=== PATIENT | male | born 1950 | race Two or more races ===

== ENCOUNTER 2016-09-24 18:17 | Emergency (ER) | payer BC, MEDICARE ==
[~2016-09-24] VITALS: Ht 188 cm; Wt 102.1 kg
[2016-09-24 18:25] VITALS: BP 146/80
[2016-09-24 19:13] LABS: Albumin 4.2 g/dL (3.4-5.0); Anion Gap 9 (5-15); Calcium 9.1 mg/dL (8.5-10.1); Carbon Dioxide 28 mmol/L (21-32); Chloride 109 mmol/L (98-107); Glucose 102 mg/dL (74-106); Magnesium 2.3 mg/dL (1.6-2.6); Sodium 146 mmol/L (136-145)
[2016-09-24 19:16] LABS: Aspartate Aminotransferase 27 U/L (15-37); BUN/Creatinine Ratio 19.1; Bilirubin, Total 0.5 mg/dL (0.2-1.0); Blood Urea Nitrogen 22 mg/dL (7-18); GFR African American 82 mL/min; GFR Non-African American 68 mL/min; Total Protein 7.1 g/dL (6.4-8.2)
[2016-09-24 19:19] LABS: Alkaline Phosphatase 65 U/L (45-117); Basophils # (auto) 0.1 uL; Basophils % (auto) 0.7 % (0.0-2.0); CONDITION Y; Eosinophils # (auto) 0.3 uL; Eosinophils % (auto) 3.2 % (0.0-7.0); Hematocrit 44.7 % (41.0-53.0); Hemoglobin 15.2 g/dL (13.5-17.5); Lymphocytes # (auto) 1.7 uL; Lymphocytes % (auto) 22.2 % (10.0-50.0); Mean Corpuscular Hemoglobin 30.5 pg (28.0-32.0); Mean Corpuscular Hgb Conc. 33.9 g/dL (32.0-36.0); Mean Platelet Volume 9.5 fL (7.4-10.4); Monocytes # (auto) 0.7 uL; Monocytes % (auto) 8.9 % (0.0-12.0); Neutrophils # (auto) 5.1 uL; Platelet Count (auto) 249 10^3/uL (140-450); Red Cell Distribution Width 13.6 % (11.6-16.0); White Blood Cell 7.9 10^3/uL (4.4-10.8)
== END 2016-09-25 02:26 | disposition left against medical advice (07) ==
LOC: ER 18:24
DX: R07.9 Chest pain, unspecified (principal); Z53.21 Procedure and treatment not carried out due to patient leaving prior to being seen by health care provider
CPT/HCPCS: 36415; 80053; 83735; 84484; 85025; 93005

== ENCOUNTER 2017-06-03 05:19 | Inpatient (IN) | payer BC, MEDICARE ==
[~2017-06-03] VITALS: Ht 188 cm; Wt 106.4 kg
[2017-06-03 06:54] LABS: Basophils # (auto) 0.1 uL; Basophils % (auto) 0.8 % (0.0-2.0); Eosinophils # (auto) 0.1 uL; Eosinophils % (auto) 1.6 % (0.0-7.0); Hematocrit 45.7 % (41.0-53.0); Hemoglobin 15.9 g/dL (13.5-17.5); Lymphocytes # (auto) 0.8 uL; Lymphocytes % (auto) 10.1 % (10.0-50.0); Mean Corpuscular Hemoglobin 30.9 pg (28.0-32.0); Mean Corpuscular Hgb Conc. 34.7 g/dL (32.0-36.0); Mean Corpuscular Volume 89.2 fL (80.0-100.0); Monocytes # (auto) 0.6 uL; Monocytes % (auto) 7.2 % (0.0-12.0); Neutrophils # (auto) 6.2 uL; Neutrophils % (auto) 80.3 % (37.0-80.0); Nucleated Red Blood Cells % 0.5 %; Platelet Count (auto) 205 10^3/uL (140-450); Red Blood Cells 5.12 10^6/uL (4.5-5.90); Red Cell Distribution Width 13.1 % (11.8-14.3); White Blood Cell 7.7 10^3/uL (4.4-10.8)
[2017-06-03 07:12] LABS: BUN/Creatinine Ratio 17.3; Calcium 8.7 mg/dL (8.5-10.1); Potassium 3.8 mmol/L (3.5-5.1)
[2017-06-03 07:15] LABS: Bilirubin, Total 0.8 mg/dL (0.2-1.0)
[2017-06-03] MEDS ORDERED: SODIUM CHLORIDE 0.9% 1,000 ML IV ONE (07:46)
[2017-06-03] MEDS: LORazepam 2MG/ML-1ML VIAL IV ONE ×2 (08:00→08:21)
[2017-06-03 09:09] LABS: Magnesium 2.1 mg/dL (1.6-2.6)
[2017-06-03 09:12] LABS: INR 1.03 (0.9-1.15); Partial Thromboplastin Time 26.4 sec (22.64-33.71); Prothrombin Time 11.2 sec (9.37-12.3)
[2017-06-03 10:40] LABS: Urine Bacteria FEW /hpf (None Seen); Urine Blood Negative /uL (Negative); Urine Mucus FEW (None Seen); Urine Specific Gravity 1.017 (1.001-1.035); Urine WBC 65 /hpf (0 - 3)
[2017-06-03 10:44] LABS: Amphetamine Screen, Urine NEGATIVE (NEGATIVE); Barbiturate Scree,Urine NEGATIVE (NEGATIVE); Benzodiazephine Screen, Urine NEGATIVE (NEGATIVE); Cannabinoid Screen, Urine NEGATIVE (NEGATIVE); Cocaine Screen, Urine NEGATIVE (NEGATIVE); Opiate Scree,Urine NEGATIVE (NEGATIVE); Phencyclidine Screen, Urine NEGATIVE (NEGATIVE)
[2017-06-03] MEDS ORDERED: SODIUM CHLORIDE 0.9% 1,000 ML IV SCH (11:09)
[2017-06-03] MEDS ORDERED: TEMAZEPAM 15 MG CAP PO PRN (11:15)
[2017-06-03] MEDS ORDERED: PROMETHAZINE HCL 25 MG/ML 1ML IV PRN (11:15)
[2017-06-03] MEDS ORDERED: ACETAMINOPHEN 500 MG TAB PO PRN (11:15)
[2017-06-03] MEDS ORDERED: LACTULOSE 20Gm/30ML SOLN PO PRN (11:15)
[2017-06-03] MEDS ORDERED: LORazepam 0.5 MG TAB PO PRN (11:15)
[2017-06-03] MEDS ORDERED: MORPHINE SULFATE 4 MG/ML SYR/VIAL IV PRN ×2 (11:15)
[2017-06-03] MEDS ORDERED: LEVETIRACETAM 500 MG TAB PO ONE ×2 (11:15→12:30)
[2017-06-03] MEDS ORDERED: HYDROcodone-ACET 5/325MG TAB PO PRN (11:15)
[2017-06-03] MEDS ORDERED: LORazepam 2MG/ML-1ML VIAL IV PRN ×2 (11:15→17:30)
[2017-06-03] MEDS ORDERED: NITROGLYCERIN 0.4 MG SL TAB SL PRN (11:15)
[2017-06-03] MEDS ORDERED: ENOXAPARIN SOD 40 MG/0.4 ML SYRINGE SC SCH (11:20)
[2017-06-03] MEDS ORDERED: chlordiazePOXIDE HCL 25 MG CAP PO PRN (12:30)
[2017-06-03] MEDS ORDERED: cefTRIAXone 1GM/10ml IVPUSH 10 ML IV ONE (12:30)
[2017-06-03] MEDS ORDERED: THIAMINE HCL 100 MG/ML 2ML VIAL IV ONE (12:30)
[2017-06-03] MEDS ORDERED: ENOXAPARIN SOD 40 MG/0.4 ML SYRINGE SC ONE (13:15)
[2017-06-03] MEDS ORDERED: FAMOTIDINE 20 MG TAB PO ONE (13:15)
[2017-06-03] MEDS ORDERED: THIAMINE HCL 100 MG TAB PO ONE (13:15)
[2017-06-03] MEDS: SODIUM CHLORIDE 0.9% 1,000 ML IV SCH (14:52)
[2017-06-03] MEDS: chlordiazePOXIDE HCL 5 MG CAP PO SCH (18:00)
[2017-06-03 19:05] VITALS: BP 131/79
[2017-06-03 19:47] LABS: % Iron Saturation 18.4 % (20-55)
[2017-06-03 20:00] VITALS: BP 138/95
[2017-06-03 20:41] LABS: Ferritin 225.9 ng/mL (10-322)
[2017-06-03 20:42] LABS: Folate (Folic Acid) 12.09 ng/mL (5.38-24)
[2017-06-03 21:51] VITALS: BP 138/95
[2017-06-03] MEDS ORDERED: LEVETIRACETAM 500 MG TAB PO SCH (22:00)
[2017-06-03] MEDS: CARVEDILOL 3.125 MG TAB PO SCH (22:34)
[2017-06-03] MEDS: ENOXAPARIN SOD 40 MG/0.4 ML SYRINGE SC SCH (22:34)
[2017-06-03] MEDS: FAMOTIDINE 20 MG TAB PO SCH (22:34)
[2017-06-04] MEDS: chlordiazePOXIDE HCL 5 MG CAP PO SCH ×5 (00:28→22:58)
[2017-06-04] MEDS ORDERED: FENO1TAB42 PO (02:41)
[2017-06-04] MEDS ORDERED: VERA1TAB9 PO (02:41)
[2017-06-04] MEDS ORDERED: OLME20TA19 PO (02:41)
[2017-06-04] MEDS ORDERED: RANI150C11 PO ×2 (02:41)
[2017-06-04] MEDS: SODIUM CHLORIDE 0.9% 1,000 ML IV SCH (02:54)
[2017-06-04 05:01] VITALS: BP 107/64
[2017-06-04 07:17] LABS: Basophils # (auto) 0.1 uL; Basophils % (auto) 0.8 % (0.0-2.0); Eosinophils # (auto) 0.1 uL; Eosinophils % (auto) 1.1 % (0.0-7.0); Hematocrit 40.2 % (41.0-53.0); Hemoglobin 13.9 g/dL (13.5-17.5); Lymphocytes # (auto) 1.4 uL; Lymphocytes % (auto) 20.4 % (10.0-50.0); Mean Corpuscular Hemoglobin 31.1 pg (28.0-32.0); Mean Corpuscular Hgb Conc. 34.6 g/dL (32.0-36.0); Monocytes # (auto) 0.6 uL; Monocytes % (auto) 9.3 % (0.0-12.0); Neutrophils # (auto) 4.7 uL; Neutrophils % (auto) 68.4 % (37.0-80.0); Nucleated Red Blood Cells % 0.1 %; Platelet Count (auto) 177 10^3/uL (140-450); Red Blood Cells 4.46 10^6/uL (4.5-5.90); White Blood Cell 6.8 10^3/uL (4.4-10.8)
[2017-06-04 07:37] LABS: BUN/Creatinine Ratio 17.4; Bilirubin, Total 0.9 mg/dL (0.2-1.0); Calcium 8.3 mg/dL (8.5-10.1); Potassium 3.3 mmol/L (3.5-5.1); Total Protein 5.8 g/dL (6.4-8.2)
[2017-06-04 08:30] VITALS: BP 107/81
[2017-06-04 09:00] VITALS: BP 107/81
[2017-06-04] MEDS: FAMOTIDINE 20 MG TAB PO SCH ×2 (09:17→22:48)
[2017-06-04] MEDS: cefTRIAXone 1GM/10ml IVPUSH 10 ML IV SCH (09:17)
[2017-06-04] MEDS: THIAMINE HCL 100 MG TAB PO SCH (09:18)
[2017-06-04] MEDS: ENOXAPARIN SOD 40 MG/0.4 ML SYRINGE SC SCH ×2 (09:19→22:48)
[2017-06-04] MEDS: CARVEDILOL 3.125 MG TAB PO SCH ×2 (09:19→22:49)
[2017-06-04] MEDS ORDERED: THIAMINE HCL 100 MG/ML 2ML VIAL IV SCH (10:00)
[2017-06-04] MEDS ORDERED: ASPirin 81 mg TAB PO SCH (10:00)
[2017-06-04 12:30] VITALS: BP 124/72
[2017-06-04] MEDS ORDERED: POTASSIUM CHL 10 Meq TABLET PO ONE (15:00)
[2017-06-04 17:05] VITALS: BP 126/93
[2017-06-04 22:00] VITALS: BP 145/88
[2017-06-05 03:08] LABS: Immunoglobulin G, Serum 609 mg/dL (700-1600)
[2017-06-05 05:30] VITALS: BP 139/92
[2017-06-05] MEDS: chlordiazePOXIDE HCL 5 MG CAP PO SCH ×2 (06:29→12:00)
[2017-06-05 08:00] VITALS: BP 147/98
[2017-06-05 08:23] VITALS: BP 147/98
[2017-06-05 08:41] LABS: Albumin 3.3 g/dL (3.4-5.0); BUN/Creatinine Ratio 14.9; Bilirubin, Total 0.8 mg/dL (0.2-1.0); Calcium 8.5 mg/dL (8.5-10.1); Potassium 3.7 mmol/L (3.5-5.1); Total Protein 6.1 g/dL (6.4-8.2)
[2017-06-05] MEDS: FAMOTIDINE 20 MG TAB PO SCH (09:28)
[2017-06-05] MEDS: ENOXAPARIN SOD 40 MG/0.4 ML SYRINGE SC SCH (09:28)
[2017-06-05] MEDS: CARVEDILOL 3.125 MG TAB PO SCH (09:28)
[2017-06-05] MEDS: cefTRIAXone 1GM/10ml IVPUSH 10 ML IV SCH (09:28)
[2017-06-05] MEDS: THIAMINE HCL 100 MG TAB PO SCH (09:28)
[2017-06-05] MEDS ORDERED: APIX5TAB OR (10:59)
[2017-06-05] MEDS ORDERED: NITR-52 PO (11:29)
[2017-06-05 11:37] VITALS: BP 147/98
[2017-06-05 11:42] VITALS: BP 140/90
== END 2017-06-05 13:21 | disposition home or self-care (01) | DRG 101 ==
LOC: EDBD 05:19 → ER 05:23 → TELE 05:24 → TELE-WESTW 20:00
PROVIDERS: ADMIT Internal Medicine; ATTEND Internal Medicine
DX: G40.89 Other seizures (principal); I48.91 Unspecified atrial fibrillation; D68.69 Other thrombophilia; G62.9 Polyneuropathy, unspecified; I48.92 Unspecified atrial flutter; E66.9 Obesity, unspecified; E78.5 Hyperlipidemia, unspecified; E87.6 Hypokalemia; N39.0 Urinary tract infection, site not specified; F43.9 Reaction to severe stress, unspecified; I11.9 Hypertensive heart disease without heart failure; F41.9 Anxiety disorder, unspecified; F10.20 Alcohol dependence, uncomplicated; G47.00 Insomnia, unspecified; G89.29 Other chronic pain; M54.2 Cervicalgia; K59.00 Constipation, unspecified; G25.81 Restless legs syndrome; Z68.30 Body mass index [BMI] 30.0-30.9, adult; Z87.891 Personal history of nicotine dependence
CPT/HCPCS: 36415; 70450; 70551; 71046; 80053; 80061; 80307; 81001; 82550; 82607; 82728; 82746; 82784; 82962; 83540; 83550; 83735; 83880; 84443; 84484; 85025; 85610; 85652; 85730; 86334; 87086; 93005; 93306; 94761; 95819; 96372; 96374; 96375

== ENCOUNTER 2017-11-04 07:09 | Day surgery (SDC) | payer BC, MEDICARE, OTHER ==
[~2017-11-04] VITALS: Ht 188 cm; Wt 104.3 kg
[~2017-11-04 07:09] MED LIST: APIX5TAB OR; FENO1TAB42 PO; NITR-52 PO; OLME20TA19 PO; RANI150C11 PO; VERA1TAB9 PO
[2017-11-04] MEDS ORDERED: LIDOCAINE VISCOUS 2% 15ML UD MT ONE (07:30)
[2017-11-04] MEDS ORDERED: NALOXONE HCL 1MG/ML 2ML SYRINGE IV ONE (07:30)
[2017-11-04] MEDS ORDERED: fentaNYL CITRATE 100 MCG/2 ML VL IV ONE (07:30)
[2017-11-04] MEDS ORDERED: FLUMAZENIL 0.1 MG/ML INJ 10ML MDV IV ONE (07:30)
[2017-11-04] MEDS ORDERED: MIDAZOLAM HCL 1MG/1ML-2 ML VIAL IV ONE (07:30)
[2017-11-04] MEDS ORDERED: diphenhdrAMINE HCL 50 MG/1 ML VL ONE (08:26)
== END 2017-11-04 10:15 | disposition home or self-care (01) ==
LOC: CATH 07:09
PROVIDERS: ATTEND Internal Medicine
DX: I48.91 Unspecified atrial fibrillation (principal); I11.0 Hypertensive heart disease with heart failure; E66.9 Obesity, unspecified; E78.1 Pure hyperglyceridemia; E78.5 Hyperlipidemia, unspecified; Z79.899 Other long term (current) drug therapy; Z68.32 Body mass index [BMI] 32.0-32.9, adult; Z82.49 Family history of ischemic heart disease and other diseases of the circulatory system; Z87.891 Personal history of nicotine dependence
CPT/HCPCS: 92960; 93312; J1200; J2250; J3010; 93005; 99152; J7060

== ENCOUNTER 2022-05-10 14:38 | Inpatient (IN) | payer BC, OTHER ==
[~2022-05-10] VITALS: Ht 182.9 cm; Wt 106.8 kg
[~2022-05-10 14:38] MED LIST changes: +AMIO200T33 PO; +FENO145T27 PO; -FENO1TAB42 PO; -NITR-52 PO; -OLME20TA19 PO; +OLME20TA53 PO; -RANI150C11 PO; +VERA1TAB24 PO; -VERA1TAB9 PO
[2022-05-10 15:21] LABS: BUN/Creatinine Ratio 24.5; Calcium 9.3 mg/dL (8.5-10.1); Potassium 5.2 mmol/L (3.5-5.1)
[2022-05-10 15:24] LABS: Bilirubin, Total 0.6 mg/dL (0.2-1.0); Total Protein 7.1 g/dL (6.4-8.2)
[2022-05-10 15:31] LABS: Basophils # (auto) 0.1 10 ^3/uL (0-0.2); Basophils % (auto) 1.3 % (0.0-2.0); Eosinophils # (auto) 0.1 10 ^3/uL (0-0.8); Eosinophils % (auto) 2.8 % (0.0-7.0); Hematocrit 48.5 % (41.0-53.0); Hemoglobin 16.3 g/dL (13.5-17.5); Lymphocytes # (auto) 1.2 10 ^3/uL (0.4-5.4); Lymphocytes % (auto) 23.6 % (10.0-50.0); Mean Corpuscular Hemoglobin 30.1 pg (28.0-32.0); Mean Corpuscular Hgb Conc. 33.5 g/dL (32.0-36.0); Mean Corpuscular Volume 89.6 fL (80.0-100.0); Monocytes # (auto) 0.8 10 ^3/uL (0-1.3); Monocytes % (auto) 15.4 % (0.0-12.0); Neutrophils # (auto) 2.8 10 ^3/uL (1.6-8.6); Neutrophils % (auto) 56.9 % (37.0-80.0); Nucleated Red Blood Cells % 0.8 %; Red Blood Cells 5.41 10^6/uL (4.5-5.90); Red Cell Distribution Width 14.8 % (11.8-14.3)
[2022-05-10 15:37] LABS: INR 1.13 (0.9-1.15); Partial Thromboplastin Time 32.4 sec (24.6-33.4)
[2022-05-10] MEDS ORDERED: HYDROcodone-ACET 5/325MG TAB PO PRN (22:45)
[2022-05-10] MEDS ORDERED: MORPHINE SULFATE INJ 2 MG/ml SYRG IV PRN ×2 (22:45)
[2022-05-10] MEDS ORDERED: DOCUSATE SOD 100 MG CAP PO PRN (22:45)
[2022-05-10] MEDS ORDERED: NITROGLYCERIN 0.4 MG SL TAB SL PRN (22:45)
[2022-05-10] MEDS ORDERED: TEMAZEPAM 15 MG CAP PO PRN (22:45)
[2022-05-10] MEDS ORDERED: ACETAMINOPHEN 325 MG TAB PO PRN (22:45)
[2022-05-10] MEDS ORDERED: ONDANSETRON HCL 4 MG/2 ML VIAL IV PRN (22:45)
[2022-05-11] MEDS: SODIUM CHLOR 0.9% PF (SALINE LOCK) 10ML VIAL/SYR IV SCH ×3 (05:50→22:34)
[2022-05-11 05:53] LABS: Basophils # (auto) 0 10 ^3/uL (0-0.2); Basophils % (auto) 0.8 % (0.0-2.0); Eosinophils # (auto) 0.2 10 ^3/uL (0-0.8); Eosinophils % (auto) 2.5 % (0.0-7.0); Hematocrit 44.7 % (41.0-53.0); Hemoglobin 15.4 g/dL (13.5-17.5); Lymphocytes # (auto) 2.3 10 ^3/uL (0.4-5.4); Lymphocytes % (auto) 37.8 % (10.0-50.0); Mean Corpuscular Hemoglobin 30.8 pg (28.0-32.0); Mean Corpuscular Hgb Conc. 34.4 g/dL (32.0-36.0); Mean Corpuscular Volume 89.3 fL (80.0-100.0); Monocytes # (auto) 0.9 10 ^3/uL (0-1.3); Monocytes % (auto) 15.5 % (0.0-12.0); Neutrophils # (auto) 2.7 10 ^3/uL (1.6-8.6); Neutrophils % (auto) 43.4 % (37.0-80.0); Nucleated Red Blood Cells % 0.1 %; Red Blood Cells 5.01 10^6/uL (4.5-5.90); Red Cell Distribution Width 14.7 % (11.8-14.3); White Blood Cell 6.1 10^3/uL (4.4-10.8)
[2022-05-11 06:14] LABS: Potassium 3.9 mmol/L (3.5-5.1)
[2022-05-11 06:24] LABS: BUN/Creatinine Ratio 27.5; Bilirubin, Total 0.7 mg/dL (0.2-1.0); Calcium 8.8 mg/dL (8.5-10.1); Total Protein 6.5 g/dL (6.4-8.2)
[2022-05-11] MEDS ORDERED: FAMOTIDINE (10MG/ML) 2ML VL IV SCH (10:00)
[2022-05-11] MEDS: APIXABAN 5 MG TAB PO SCH ×2 (10:41→22:34)
[2022-05-11] MEDS: amLODIPine BESYLATE 5 MG TAB PO SCH (13:56)
[2022-05-11] MEDS ORDERED: DIVA500T13 PO (16:05)
[2022-05-11] MEDS ORDERED: OXCA600T40 PO (16:05)
[2022-05-11] MEDS ORDERED: OXcarbazepine 300 MG TAB PO SCH (18:00)
[2022-05-11] MEDS ORDERED: ICOS1CAP3 PO (18:50)
[2022-05-11] MEDS ORDERED: HYDR-4069 (18:50)
[2022-05-11] MEDS ORDERED: METO1TAB9 PO (18:50)
[2022-05-11] MEDS: LOSARTAN POTASSIUM 50 MG TAB PO SCH (22:34)
[2022-05-12] VITALS (7 sets, daily range): BP systolic 134–164; BP diastolic 85–104
[2022-05-12] MEDS: SODIUM CHLOR 0.9% PF (SALINE LOCK) 10ML VIAL/SYR IV SCH ×2 (05:47→14:11)
[2022-05-12] MEDS ORDERED: OXcarbazepine 300 MG TAB PO SCH (07:00)
[2022-05-12] MEDS ORDERED: ADENOSINE 90 MG in GIVE UN-DILUTED 0 ML IV STA (08:16)
[2022-05-12] MEDS: amLODIPine BESYLATE 5 MG TAB PO SCH (10:43)
[2022-05-12] MEDS: LOSARTAN POTASSIUM 50 MG TAB PO SCH (10:44)
[2022-05-12] MEDS: APIXABAN 5 MG TAB PO SCH (10:44)
[2022-05-12] MEDS ORDERED: amLODIPine BESYLATE 5 MG TAB PO ONE (12:15)
[2022-05-12] MEDS ORDERED: NIFEdipine ER 30 MG TAB PO SCH (12:30)
[2022-05-13] MEDS ORDERED: amLODIPine BESYLATE 5 MG TAB PO SCH (10:00)
== END 2022-05-12 17:21 | disposition home or self-care (01) | DRG 305 ==
LOC: ER 14:39 → TELE 22:33 → TELE-EAST 05-12 03:30
PROVIDERS: ADMIT Nurse Practitioner Family; ATTEND Student in an Organized Health Care Education/Training Program
DX: I16.0 Hypertensive urgency (principal); I48.20 Chronic atrial fibrillation, unspecified; I48.92 Unspecified atrial flutter; I12.9 Hypertensive chronic kidney disease with stage 1 through stage 4 chronic kidney disease, or unspecified chronic kidney disease; L20.9 Atopic dermatitis, unspecified; N18.9 Chronic kidney disease, unspecified; Z20.822 Contact with and (suspected) exposure to COVID-19; E66.9 Obesity, unspecified; G89.29 Other chronic pain; G40.909 Epilepsy, unspecified, not intractable, without status epilepticus; E78.5 Hyperlipidemia, unspecified; R07.9 Chest pain, unspecified; Z68.31 Body mass index [BMI] 31.0-31.9, adult; Z79.899 Other long term (current) drug therapy
CPT/HCPCS: 36415; 71045; 76775; 78452; 80053; 83880; 84484; 85025; 85610; 85730; 87426; 93005; 93017; G0378; J0153; J3490